=== PATIENT | male | born 1960 | race Two or more races ===

== ENCOUNTER 2022-12-31 06:12 | Day surgery (SDC) | payer OTHER ==
[~2022-12-31] VITALS: Ht 177.8 cm; Wt 81.6 kg
== END 2022-12-31 14:30 | disposition home or self-care (01) ==
LOC: CIR.AMB 06:12
PROVIDERS: ATTEND Otolaryngology Otology & Neurotology
DX: H66.92 Otitis media, unspecified, left ear (principal); H72.02 Central perforation of tympanic membrane, left ear; H61.811 Exostosis of right external canal; Z88.0 Allergy status to penicillin